=== PATIENT | male | born 1955 | race Caucasian/White ===

== ENCOUNTER 2017-02-06 11:20 | Inpatient (IN) | payer MEDICARE ==
[~2017-02-06] VITALS: Ht 182.9 cm; Wt 119.1 kg
--- NOTE | ~2017-02-06 | EKG ---
[place], [place] ELECTROCARDIOGRAM REPORT NAME: ABBEY WASSERMAN UNIT #: [id number] ROOM: [facility] DOCTOR: ISMA SMITH,MANJINDER BIRTHDATE: [birth year] DOS: 02/06/2017 TIME: 1308 hours. IMPRESSION: 1. Sinus rhythm. 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 3. Baseline artifacts. MANJINDER ASHBY MD CM:EKGRPT:ELECTROCARDIOGRAM REPORT [id number] MANJINDER ASHBY MD
[2017-02-06 11:41] VITALS: BP 125/60
--- NOTE | 2017-02-06 12:10 | NUR ---
PATIENT STATES TO THIS NURSE THAT HE HAS A LOW OXYGEN LEVEL BECAUSE OF A HISTORY OF A COLLAPSED LUNG ON THE R SIDE. HE STATES TO THIS NURSE THAT IT ALWAYS STAYS AROUN 90%.
[2017-02-06 12:35] LABS: BILIRUBIN NEGATIVE (NEGATIVE); BLOOD NEGATIVE (NEGATIVE); CLARITY CLEAR (CLEAR); COLOR YELLOW (YELLOW); GLUCOSE NEGATIVE (NEGATIVE); KETONE TRACE (NEGATIVE); LEUKO ESTERASE NEGATIVE (NEGATIVE); NITRITE NEGATIVE (NEGATIVE); PH 5.5 (5.0-9.0); SPECIFIC GRAVITY >= 1.030 (1.005-1.030); UROBILINOGEN 0.2 E.U./dl (0.2-1.0)
[2017-02-06 12:43] LABS: WBC 0-2 wbc/hpf (0-5)
[2017-02-06 12:46] LABS: URINE AMPHETAMINES < 1000 (1000ng/ml); URINE BARBITURATES < 200 (200ng/ml); URINE BENZODIAZEPINES < 200 (200ng/ml); URINE CANNABINOIDS (THC) > 50 (50ng/ml); URINE COCAINE < 300 (300ng/ml); URINE METHADONE < 300 (300ng/ml); URINE OPIATES < 300 (300ng/ml); URINE PHENCYCLIDINE < 25 (25ng/ml)
[2017-02-06 13:14] LABS: BASO # 0.1 10*3/uL (0.0-0.1); EOS # 0.3 10*3/uL (0.0-0.4); EOS % 5.6 % (1.0-4.0); HEMATOCRIT 40.9 % (42.0-52.0); HEMOGLOBIN 12.8 g/dl (14.0-18.0); LYMPH # 2.3 10*3/uL (1.3-4.4); LYMPH % 37.7 % (27.0-41.0); MEAN CELL VOLUME 83.3 fl (80.0-94.0); MEAN CORPUSCULAR HGB 26.1 pg (27.0-31.0); MEAN CORPUSCULAR HGB CONC 31.3 g/dl (33.0-37.0); MEAN PLATELET VOLUME 10.2 fl (9.6-12.3); MONO # 0.5 10*3/uL (0.1-1.0); NEUT # 2.8 10*3/uL (2.3-7.9); NEUT % 46.4 % (47.0-73.0); PLATELET COUNT AUTOMATED 300 10*3/uL (130-400); RED BLOOD COUNT 4.91 10*6/uL (4.50-5.90); RED CELL DISTRI WIDTH 16.2 % (0-14.5)
[2017-02-06 13:18] VITALS: BP 131/79
[2017-02-06 13:24] LABS: ACT PARTIAL THROMBO TIME 25.1 SECONDS (20.8-31.5)
[2017-02-06 13:29] LABS: ALBUMIN 3.3 gm/dl (3.1-4.5); ALKALINE PHOSPHATASE 103 U/L (45-117); BUN 12 mg/dl (7-24); CHLORIDE 104 mmol/L (98-107); CREATININE 1.42 mg/dL (0.70-1.30); LIPASE 130 U/L (73-393); POTASSIUM 3.8 mmol/L (3.5-5.1); SGOT/AST 15 IU/L (3-35); SGPT/ALT 15 U/L (12-78); SODIUM 139 mmol/L (136-145); TOTAL PROTEIN 7.7 gm/dL (6.4-8.2)
[2017-02-06 13:30] LABS: ETHYL ALCOHOL < 3.0 mg/dl (<3); TROPONIN I < 0.015 ng/ml (<0.045)
[2017-02-06 13:35] VITALS: BP 128/61
--- NOTE | 2017-02-06 13:35 | NUR ---
A 61, admitted to 5E, under the services of MARIOLA Stroud DO with a diagnosis of ALCHOLOL DEPENDENCE. Chief complaint is ALCHOLOL ABUSE. Patient arrived via ambulatory from ER. Monitor applied. Initial assessment completed. Vital signs taken and recorded. MARIOLA STROUD DO notified of admission to the unit. Orders received. See assessment for past medical history, medications and allergies. Patient and/or family oriented to unit. visitation policy reviewed. Clothing/patient valuable form completed. AWAIS DHILLON
[2017-02-06 13:45] VITALS: BP 128/61
--- NOTE | 2017-02-06 13:48 | NUR ---
PATIENT TAKEN TO 5TH FLOOR BY THIS NURSE. GEORGE BLANK AT BEDSIDE.
[2017-02-06] MEDS ORDERED: COREG CR10 MG PO (15:24)
[2017-02-06] MEDS ORDERED: TRINTELLIX20 MG PO (15:25)
[2017-02-06] MEDS ORDERED: COGENTIN0.5 MG PO (15:25)
[2017-02-06] MEDS ORDERED: SEROQUEL50 MG PO (15:25)
[2017-02-06] MEDS ORDERED: HYDROCHLOROTH12.5 M2 PO (15:26)
[2017-02-06] MEDS ORDERED: SEROQUEL XR400 MG PO (15:27)
[2017-02-06] MEDS ORDERED: LATU40TA PO (15:27)
[2017-02-06] MEDS ORDERED: PROTONIX40 MG PO (15:28)
[2017-02-06] MEDS ORDERED: NEURONTIN400 MG PO (15:28)
[2017-02-06] MEDS ORDERED: NICODERM CQ1 EACH T (15:29)
[2017-02-06] MEDS ORDERED: VISION VITAMIN1 EACH PO (15:29)
[2017-02-06 16:12] VITALS: BP 150/69
--- NOTE | 2017-02-06 17:20 | NUR ---
CALL RECEIVED FROM DR. LUIS R/T NICOLÁS, CALL PLACED TO PHARMACY AND RECOMMENDED DAILY DOSE IS 80OMG DAILY, AND NOT TO EXCEED
[2017-02-06 21:19] VITALS: BP 129/59
--- NOTE | 2017-02-06 21:52 | NUR ---
PATIENT RESTING IN BED CALL LIGHT IN REACH NO CO AT THIS TIME SEE SHIFT ASSESSMENT
[2017-02-07] VITALS: BP 121/65
[2017-02-07 06:27] LABS: BASO % 0.6 % (0.0-1.0); EOS # 0.3 10*3/uL (0.0-0.4); EOS % 3.9 % (1.0-4.0); HEMATOCRIT 41.3 % (42.0-52.0); HEMOGLOBIN 12.9 g/dl (14.0-18.0); LYMPH # 1.9 10*3/uL (1.3-4.4); LYMPH % 27.6 % (27.0-41.0); MEAN CELL VOLUME 83.1 fl (80.0-94.0); MEAN CORPUSCULAR HGB CONC 31.2 g/dl (33.0-37.0); MEAN PLATELET VOLUME 10.3 fl (9.6-12.3); MONO # 0.4 10*3/uL (0.1-1.0); MONO % 6.2 % (3.0-9.0); NEUT # 4.1 10*3/uL (2.3-7.9); NEUT % 61.1 % (47.0-73.0); PLATELET COUNT AUTOMATED 289 10*3/uL (130-400); RED BLOOD COUNT 4.97 10*6/uL (4.50-5.90); RED CELL DISTRI WIDTH 16.2 % (0-14.5); WHITE BLOOD COUNT 6.7 10*3/uL (4.8-10.8)
[2017-02-07 06:46] LABS: BUN 13 mg/dl (7-24); CHLORIDE 102 mmol/L (98-107); CREATININE 1.22 mg/dL (0.70-1.30); POTASSIUM 3.7 mmol/L (3.5-5.1); SODIUM 139 mmol/L (136-145)
[2017-02-07 08:00] VITALS: BP 126/62
--- NOTE | 2017-02-07 08:59 | NUR ---
[place] STAFF DISCUSSED AFTERCARE OPTIONS WITH PATIENT. PATIENT IS INTERESTED IN THE VIVITROL SHOT. PATIENT WAS REFERRED TO [facility]. KYLE ARREOLA B.A. TIRE SORTER
--- NOTE | 2017-02-07 13:43 | NUR ---
PATIENT MEDICATED WITH IVP ATIVAN FOR ANXIETY AND WITHDRAWAL.
--- NOTE | 2017-02-07 14:27 | NUR ---
PATIENT RESTING W/ NO S/S ANXIETY/TREMORS. ATIVAN EFFECTIVE.
[2017-02-07 20:00] VITALS: BP 124/68
[2017-02-08] VITALS: BP 147/76
[2017-02-08 08:00] VITALS: BP 141/70
--- NOTE | 2017-02-08 08:58 | NUR ---
PT RESTING IN BED. NO DISTRESS NOTED. WILL MONITOR
[2017-02-08 12:00] VITALS: BP 127/51
--- NOTE | 2017-02-08 14:16 | NUR ---
[facility] STAFF IS STILL IN THE PROCESS ON SCHEDULING AN APPOINTMENT WITH [facility] FOR THE VIVITROL SHOT. KYLE ARREOLA B.A. PERIOPERATIVE NURSE
[2017-02-08 16:00] VITALS: BP 153/61
--- NOTE | 2017-02-08 17:00 | NUR ---
PT RESTING IN BED. NO DISTRESS NOTED. WILL MONITOR
--- NOTE | 2017-02-08 19:55 | NUR ---
MEDICATED WITH IMMODIUM PER PRN ORDER FOR C/O DIARRHEA.
[2017-02-08 20:00] VITALS: BP 132/69
[2017-02-09] VITALS: BP 124/58
[2017-02-09 08:00] VITALS: BP 118/72
--- NOTE | 2017-02-09 08:03 | NUR ---
PT RESTING IN BED. NO DISTRESS NOTED. EYES CLOSED/ CALL LIGHT WITHIN REACH. WILL MONITOR
[2017-02-09 12:00] VITALS: BP 124/79
[2017-02-09] MEDS ORDERED: LEVAQUIN500 M2 PO (12:12)
[2017-02-09] MEDS ORDERED: ATARAX,VISTARIL50 MG PO (12:14)
--- NOTE | 2017-02-09 12:23 | NUR ---
PATIENT IS GOING TO [facility] FOR THE VIVITROL SHOT. [place] STAFF SCHEDULED AN APPOINTMENT FOR PATIENT. PATIENT AGREES AND UNDERSTANDS HIS AFTERCARE PLAN. KYLE ARREOLA B.A. WASHING MACHINE ASSEMBLER
--- NOTE | 2017-02-09 15:45 | NUR ---
PT PULSE OX 82 ON ROOM AIR. PT LETHARGIC PT PLACED ON 2L NC, STILL IN LOW 80S. NOW 4L 92% DR LUIS NOTIFIED STATES TO CALL HIM BACK IN 30 MIN
--- NOTE | 2017-02-09 15:59 | NUR ---
SAT PT UP ON SIDE OF BED, 94% RA
[2017-02-09 16:00] VITALS: BP 124/71
--- NOTE | 2017-02-09 16:29 | NUR ---
Discharge instructions reviewed with patient/family. Patient receptive and verbalizes understanding. Follow-up care arranged. Written instructions given to patient/family. PT RIDE HERE TO PICK PT UP (SET UP THROUGH [facility]) LEONARD PATTEN
== END 2017-02-09 16:29 | disposition home or self-care (01) | DRG 896 ==
LOC: ED 11:20 → 5E 13:01 → EDHOLD 13:01 → 5E 13:08
PROVIDERS: Emergency Medicine; Student in an Organized Health Care Education/Training Program; ADMIT Internal Medicine
DX: F10.239 Alcohol dependence with withdrawal, unspecified (principal); J96.01 Acute respiratory failure with hypoxia; N17.0 Acute kidney failure with tubular necrosis; J18.1 Lobar pneumonia, unspecified organism; J43.9 Emphysema, unspecified; D64.9 Anemia, unspecified; E66.9 Obesity, unspecified; G47.33 Obstructive sleep apnea (adult) (pediatric); K21.9 Gastro-esophageal reflux disease without esophagitis; F32.9 Major depressive disorder, single episode, unspecified; F17.210 Nicotine dependence, cigarettes, uncomplicated; Z79.899 Other long term (current) drug therapy; Z90.5 Acquired absence of kidney; Z71.6 Tobacco abuse counseling; Z87.19 Personal history of other diseases of the digestive system; Z68.33 Body mass index [BMI] 33.0-33.9, adult